=== PATIENT | female | born 1955 | race Hispanic/Latino ===

== ENCOUNTER 2016-10-08 04:55 | Emergency (ER) | payer OTHER ==
[~2016-10-08] VITALS: Ht 147.3 cm; Wt 68.0 kg
[~2016-10-08 04:55] MED LIST: ACYCLOVIR800 MG PO; BACLOFEN10 MG PO; BACTRIM DS TAB1 EACH PO; CEPHALEXIN500 MG PO; CIPROFLOXACIN250 MG PO; CLINDAMYCIN HC300 MG PO; CYCLOBENZAPRINE10 MG PO; CYCLOBENZAPRINE5 MG PO; DICLOFENAC SODI75 MG PO; FLAGYL500 MG PO; FLOVENT HFA12 GM INH; GABAPENTIN300 MG PO; IBUPROFEN200 M1 PO; LISINOPRIL-HCT1 EAC2 PO; LYRICA75 MG PO; MONTELUKAST SOD10 MG PO; NAPROXEN375 M1 PO; NORCO 5-325 TA1 EACH PO; OXYCODONE HCL10 MG PO; PERCOCET 7.5-31 EACH PO; RANITIDINE HCL150 M1 PO; SPIRIVA18 MCG INH
[2016-10-08] MEDS ORDERED: TRAMADOL HCL50 MG PO (05:07)
[2016-10-08] MEDS ORDERED: BACTRIM DS TAB1 EACH PO (05:51)
[2016-10-08] MEDS ORDERED: CEPHALEXIN500 MG PO (05:51)
== END 2016-10-08 06:10 | disposition home or self-care (01) ==
LOC: ED 04:55
DX: L03.115 Cellulitis of right lower limb (principal); F17.200 Nicotine dependence, unspecified, uncomplicated; Z79.899 Other long term (current) drug therapy
CPT/HCPCS: 99283

== ENCOUNTER 2017-02-02 14:58 | Emergency (ER) | payer OTHER ==
[~2017-02-02] VITALS: Ht 147.3 cm; Wt 68.0 kg
[~2017-02-02 14:58] MED LIST changes: +TRAMADOL HCL50 MG PO
[2017-02-02] MEDS ORDERED: ZITHROMAX250 MG PO (17:47)
[2017-02-02] MEDS ORDERED: VENTOLIN HFA18 GM INH (17:47)
== END 2017-02-02 18:20 | disposition home or self-care (01) ==
LOC: ED 14:58
DX: F19.10 Other psychoactive substance abuse, uncomplicated (principal); J18.9 Pneumonia, unspecified organism; I10 Essential (primary) hypertension; F17.200 Nicotine dependence, unspecified, uncomplicated; Z86.19 Personal history of other infectious and parasitic diseases; Z79.899 Other long term (current) drug therapy
CPT/HCPCS: 70450; 71010; 72125; 80053; 85025; 85651; 86140; 94640; 96372; 99284; J0696

== ENCOUNTER → 2017-02-03 | Emergency (ER) | payer OTHER ==
[~2017-02-03] VITALS: Ht 147.3 cm; Wt 68.0 kg
[~2017-02-03] MED LIST changes: +VENTOLIN HFA18 GM INH; +ZITHROMAX250 MG PO
== END ==
LOC: ED 13:38
DX: J18.9 Pneumonia, unspecified organism (principal); G82.50 Quadriplegia, unspecified; F15.90 Other stimulant use, unspecified, uncomplicated; F11.90 Opioid use, unspecified, uncomplicated; F17.200 Nicotine dependence, unspecified, uncomplicated; Z86.19 Personal history of other infectious and parasitic diseases; Z90.710 Acquired absence of both cervix and uterus; Z79.899 Other long term (current) drug therapy
CPT/HCPCS: 36600; 51702; 71010; 72128; 80053; 82803; 83880; 84484; 85025; 94640; 96365; 99285; J3370

== ENCOUNTER 2017-06-02 12:16 | Emergency (ER) | payer OTHER, MEDICAID ==
[~2017-06-02] VITALS: Ht 147.3 cm; Wt 68.0 kg
--- OUTSIDE RECORDS SUMMARY | ~2017-06-02 | XMS | Clinical Summary ---
Demographics + + + | Address | [address] | | | [place] [address] | + + + | Home Phone | | + + + | Preferred Language | Unknown | + + + | Marital Status | Single | + + + | Mosque Affiliation | Unknown | + + + [...] Team Providers + +------+ + | Care Professor Of Kinesiology Name | Role | Phone | + +------+ + | Abraham Barton MD | PP | Unavailable | + +------+ + Source Comments [place]CRUZ is fully live on both [facility] and [facility] InPatient.[facility] & [facility] Allergies No Known Allergies Current Medications [...] 01/20/2011 | | | (FLU SHOT) | 7 | | | + + + + + Results Not on filefrom Last 3 Months
--- OUTSIDE RECORDS SUMMARY | ~2017-06-02 | XMS | Clinical Summary ---
Demographics + + + | Address | [address] | | | [place] [address] | + + + | Home Phone | | + + + | Preferred Language | Unknown | + + + | Marital Status | Single | + + + | Latter Day Affiliation | Unknown | + + + [...] Team Providers + +------+ + | Care Black Oxide Coating Equipment Tender Name | Role | Phone | + +------+ + | Abraham Barton MD | PP | Unavailable | + +------+ + Source Comments [place]Z is fully live on both [facility] Ambulatory and [facility] InPatient.[facility] & [facility] Allergies No Known Allergies Current Medications + [...]
[2017-06-02] MEDS ORDERED: OXYCODONE HCL5 MG PO (12:40)
[2017-06-02] MEDS ORDERED: IPRAT-ALBUT 0.5-3 ML INH ×2 (12:46→14:18)
[2017-06-02] MEDS ORDERED: NITROFURANTOIN100 MG PO (12:47)
== END 2017-06-02 14:43 | disposition home or self-care (01) ==
LOC: ED 12:16
DX: J44.9 Chronic obstructive pulmonary disease, unspecified (principal); R60.9 Edema, unspecified; I10 Essential (primary) hypertension; F17.200 Nicotine dependence, unspecified, uncomplicated; Z79.899 Other long term (current) drug therapy
CPT/HCPCS: 36415; 80053; 85025; 99283

== ENCOUNTER 2017-07-13 02:27 | Observation (INO) | payer OTHER ==
[~2017-07-13] VITALS: Ht 147.3 cm; Wt 64.5 kg
--- OUTSIDE RECORDS SUMMARY | ~2017-07-13 | XMS | Clinical Summary ---
Demographics + + + | Address | [address] | | | [place] [address] | + + + | Home Phone | | + + + | Preferred Language | Unknown | + + + | Marital Status | Single | + + + | Yazidism Affiliation | Unknown | + + + [...] Team Providers + +------+ + | Care Mobile Home Park Manager Name | Role | Phone | + +------+ + | Abraham Barton MD | PP | Unavailable | + +------+ + Source Comments [place]Z is fully live on both [facility] Amb[facility] and [facility] InPatient.[facility] & [facility] Allergies No Known Allergies Current Medications + [...]
--- OUTSIDE RECORDS SUMMARY | ~2017-07-13 | XMS | Clinical Summary ---
Demographics + + + | Address | [address] | | | [place] [address] | + + + | Home Phone | | + + + | Preferred Language | Unknown | + + + | Marital Status | Single | + + + | Congregational Affiliation | Unknown | + + + [...] Team Providers + +------+ + | Care Rejoiner Name | Role | Phone | + +------+ + | Abraham Barton MD | PP | Unavailable | + +------+ + Source Comments [place]Z is fully live on both [facility] Ambulatory and [facility] InPatient.[facility] & [facility] Allergies No Known Allergies Current Medications + [...]
--- OUTSIDE RECORDS SUMMARY | ~2017-07-13 | XMS | Clinical Summary ---
Demographics + + + | Address | [address] | | | [place] [address] | + + + | Home Phone | | + + + | Preferred Language | Unknown | + + + | Marital Status | Single | + + + | Christianity Affiliation | Unknown | + + + [...] Team Providers + +------+ + | Care Crimper Operator Name | Role | Phone | + +------+ + | Abraham Barton MD | PP | Unavailable | + +------+ + Source Comments [place]UZ is fully live on both [facility] and [facility] InPatient.[facility] Allergies No Known Allergies Current Medications + [...]
--- OUTSIDE RECORDS SUMMARY | ~2017-07-13 | XMS | Clinical Summary ---
Demographics + + + | Address | [address] [place] [address] ROAD | | | [place] [address] | + + + | Home Phone | | + + + | Preferred Language | Unknown | + + + | Marital Status | | + + + | Yazdanism Affiliation | Unknown | + + + | Race | Unknown | + + + | Ethnic Group | Unknown | + + + Author + + + | Author | [facility] | | | and [place] | + + + | Organization | [facility] | | | [...] Team Providers + +------+ + | Care Prison Keeper Name | Role | Phone | + +------+ + | Corie Bain CONTROLS PROJECT ENGINEER | PP | | + +------+ + [...] Vaccine: Influenza | | | | | (#1) | 7 | | | + + [...] | MODA | xxxxxxxx | Medica | +[id number] | | | MEDICAID HMO | HEALTH [...] | Self | [birth year] | Home: | [id number] [place] [address] ROAD | | JUAN DANIEL | matthew/Fan | | 1954 | [phone] | [place] [address] | | | [place] | | | [phone] | | + +--------+ +--------+ + +
--- OUTSIDE RECORDS SUMMARY | ~2017-07-13 | XMS | Clinical Summary ---
Demographics + + + | Address | [address] [place] [address] ROAD | | | [place] [address] | + + + | Home Phone | | + + + | Preferred Language | Unknown | + + + | Marital Status | | + + + | Worship Affiliation | Unknown | + + + | Race | Unknown | + + + | Ethnic Group | Unknown | + + + Author + + + | Author | [facility] | | | and [place] | + + + | Organization | [facility] | | | [...] Team Providers + +------+ + | Care Blow Pit Helper Name | Role | Phone | + +------+ + | Corie Bain MASK DESIGNER | PP | | + +------+ + [...] | MODA | xxxxxxxx | Medica | [id number] | | | MEDICAID HMO | HEALTH [...] | Self | [birth year] | Home: | [id number] [place] [address] ROAD | | JUAN DANIEL | matthew/Fan | | 1954 | [phone] | [place] [address] | | | [place] | | | [phone] | | + +--------+ +--------+ + +
--- OUTSIDE RECORDS SUMMARY | ~2017-07-13 | XMS | Clinical Summary ---
Demographics + + + | Address | [address] [place] [address] ROAD | | | [place] [address] | + + + | Home Phone | | + + + | Preferred Language | Unknown | + + + | Marital Status | | + + + | Nondenominational Affiliation | Unknown | + + + | Race | Unknown | + + + | Ethnic Group | Unknown | + + + Author + + + | Author | [facility] | | | and [place] | + + + | Organization | [facility] | | [...] Team Providers + +------+ + | Care Envelope Sealing Machine Operator Name | Role | Phone | + +------+ + | Corie Bain LOG HOOKER | PP | | + +------+ + [...] | MODA | xxxxxxxx | Medica | +[id number] | | | MEDICAID HMO | HEALTH [...] | Self | [birth year] | Home: | [id number] [place] [address] ROAD | | JUAN DANIEL | matthew/Fan | | 1954 | [phone] | [place] [address] | | | [place] | | | [address] | | + +--------+ +--------+ + +
[~2017-07-13 02:27] MED LIST changes: +IPRAT-ALBUT 0.5-3 ML INH; +NITROFURANTOIN100 MG PO; +OXYCODONE HCL5 MG PO
[2017-07-13] MEDS ORDERED: COMBIVENT RESPIM4 GM INH (11:40)
[2017-07-13] MEDS ORDERED: PREDNISONE20 MG PO (11:41)
[2017-07-13] MEDS ORDERED: DOXYCYCLINE HY100 MG PO (11:41)
[2017-07-13] MEDS ORDERED: ALBUTEROL2.5 MG/3 M INH (11:42)
[2017-07-13] MEDS ORDERED: NICOTINE LOZENGE4 MG BUCCAL (12:08)
--- NOTE | 2017-07-13 16:50 | EKG ---
[facility] [address] [place] [address] Signed Normal sinus rhythm Normal ECG When compared with ECG of 31-JAN-2017 14:18, No significant change was found Confirmed by SHAQUILLE GONZALEZ MD ([id number]) on 07/13/2017 4:49:50 PM Electronically Signed By: SHAQUILLE GONZALEZ MD 07/13/17 1650 PATIENT NAME: ANGELADESHAWN Electrocardiogram DATE OF : 53 PHYSICIAN: SHAQUILLE GONZALEZ MD REPORT #: [id number] REPORT IS CONFIDENTIAL AND NOT TO BE RELEASED WITHOUT AUTHORIZATION
== END 2017-07-13 16:01 | disposition home or self-care (01) ==
LOC: ED 02:27 → MS 02:29
PROVIDERS: ADMIT Internal Medicine
DX: J44.1 Chronic obstructive pulmonary disease with (acute) exacerbation (principal); J96.01 Acute respiratory failure with hypoxia; J96.02 Acute respiratory failure with hypercapnia; F17.200 Nicotine dependence, unspecified, uncomplicated; B19.20 Unspecified viral hepatitis C without hepatic coma; I10 Essential (primary) hypertension; E03.9 Hypothyroidism, unspecified; G89.29 Other chronic pain; M54.9 Dorsalgia, unspecified; F11.10 Opioid abuse, uncomplicated; J98.11 Atelectasis; Z87.11 Personal history of peptic ulcer disease; Z87.2 Personal history of diseases of the skin and subcutaneous tissue
CPT/HCPCS: 36415; 36600; 71045; 80053; 82803; 83735; 83880; 84484; 85025; 93005; 93010; 94640; 94644; 94761; 96374; 96375; 99285; 99406; G0378; J0696; J2405; J2930; J7030; J7512

== ENCOUNTER 2017-07-22 14:55 | Observation (INO) | payer OTHER ==
[~2017-07-22] VITALS: Ht 147.3 cm; Wt 64.0 kg
--- OUTSIDE RECORDS SUMMARY | ~2017-07-22 | XMS | Clinical Summary ---
Demographics + + + | Address | [address] | | | [place] [address] | + + + | Home Phone | | + + + | Preferred Language | Unknown | + + + | Marital Status | Single | + + + | Temple Affiliation | Unknown | + + + [...] Team Providers + +------+ + | Care Insurance Claims Clerk Name | Role | Phone | + +------+ + | Abraham Barton MD | PP | Unavailable | + +------+ + Source Comments [place]Z is fully live on both [facility] Ambulatory and [facility] InPatient.[facility] Allergies No Known Allergies Current Medications + [...]
--- OUTSIDE RECORDS SUMMARY | ~2017-07-22 | XMS | Clinical Summary ---
Demographics + + + | Address | [address] [place] [address] ROAD | | | [place] [address] | + + + | Home Phone | | + + + | Preferred Language | Unknown | + + + | Marital Status | | + + + | Voodoo Affiliation | Unknown | + + + | Race | Unknown | + + + | Ethnic Group | Unknown | + + + Author + + + | Author | [facility] | | | and [place] | + + + | Organization | [facility] | | | [...] Team Providers + +------+ + | Care Bricklayer Apprentice Name | Role | Phone | + +------+ + | Corie Bain ELECTRO OPTICAL ENGINEER | PP | | + +------+ [...] | MODA | xxxxxxxx | Medica | [id number] | | | MEDICAID HMO | HEALTH [...] | Self | [birth year] | Home: | [id number] [place] [address] ROAD | | JUAN DANIEL | matthew/Fan | | 1954 | [phone] | [place] [address] | | | [place] | | | [address] | | + +--------+ +--------+ + +
[~2017-07-22 14:55] MED LIST changes: +ALBUTEROL2.5 MG/3 M INH; +COMBIVENT RESPIM4 GM INH; +DOXYCYCLINE HY100 MG PO; +NICOTINE LOZENGE4 MG BUCCAL; +PREDNISONE20 MG PO
--- OUTSIDE RECORDS SUMMARY | 2017-07-22 17:48 | XMS | Clinical Summary ---
Demographics + + + | Address | [address] [place] [address] ROAD | | | [place] [address] | + + + | Home Phone | | + + + | Preferred Language | Unknown | + + + | Marital Status | | + + + | Buddhism Affiliation | Unknown | + + + | Race | Unknown | + + + | Ethnic Group | Unknown | + + + Author + + + | Author | [facility] | | | and [place] | + + + | Organization | [facility] | | | and [place] | + + + | Address | Unknown | + + + | Phone | Unavailable | + + + Support + + +---------+ + | Name | Relationship | Address | Phone | + + +---------+ + | Lewis Miller | ECON | Unknown | | + + +---------+ + Care Team Providers + +------+ + | Care C Winforms Developer Name | Role | Phone | + +------+ + | Corie Bain DRYER OPERATOR | PP | | + +------+ + Allergies No Known Allergies Current Medications + + +---------+---------+------+------+-------+ | Prescription | Sig. | Disp. | Refills | Star | End | Statu | | | | | | t | Date | s | | | | | | Date | | | + + +---------+---------+------+------+-------+ | cyclobenzaprine | Take 10 mg by mouth | | | | | Activ | | (FLEXERIL) 10 mg | nightly. | | | | | e | | tablet | | | | | | | + + +---------+---------+------+------+-------+ | docusate sodium | Take 100 mg by mouth | | | | | Activ | | (COLACE) 100 mg | 2 times daily. | | | | | e | | capsule | | | | | | | + + +---------+---------+------+------+-------+ | ibuprofen | Take 800 mg by mouth | | | | | Activ | | (ADVIL,MOTRIN) 800 | as needed. | | | | | e | | MG tablet | | | | | | | + + +---------+---------+------+------+-------+ | baclofen | Take 10 mg by mouth | | | | | Activ | | (LIORESAL) 10 mg | 3 times daily. | | | | | e | | tablet | | | | | | | + + +---------+---------+------+------+-------+ | fluticasone | Inhale 1 puff into | | | | | Activ | | (FLOVENT HFA) 110 | the lungs 2 times | | | | | e | | mcg/puff inhaler | daily. | | | | | | + + +---------+---------+------+------+-------+ | gabapentin | TAKE ONE CAPSULE BY | 90 | 11 | 10/2 | | Activ | | (NEURONTIN) 300 mg | MOUTH EVERY NIGHT AT | capsule | | 8/20 | | e | | capsule | BEDTIME | | | 15 | | | + + +---------+---------+------+------+-------+ | oxyCODONE 10 MG | Take 5-10 mg by | | | | | Activ | | TABS | mouth every 4 hours | | | | | e | | | as needed. | | | | | | + + +---------+---------+------+------+-------+ | ranitidine | Take 150 mg by mouth | | | | | Activ | | (ZANTAC) 150 mg | 2 times daily. | | | | | e | | tablet | | | | | | | + + +---------+---------+------+------+-------+ Active Problems + + + | Problem | Noted Date | + + + | Facet arthritis of lumbar region (HCC) | 07/09/2014 | + + + | Chronic low back and posterior pelvis pain | 06/12/2013 | + + + | DDD (degenerative disc disease), lumbar | 06/12/2013 | + + + | Lumbar radiculopathy | 06/12/2013 | + + + | Coccydynia | 06/12/2013 | + + + | Right leg paresthesias | 06/12/2013 | + + + | Illicit drug use - meth and heroine | 06/12/2013 | + + + Social History + +-------+ +--------+------+ | Tobacco Use | Types | Packs/Day | Years | Date | | | | | Used | | + +-------+ +--------+------+ | Current Every Day | | | | | | Smoker | | | | | + +-------+ +--------+------+ + + + | Sex Assigned at | Date Recorded | | | | + + + | Not on file | | + + + Last Filed Vital Signs + + + + | Vital Sign | Reading | Time Taken | + + + + | Blood Pressure | 105/70 | 12/16/20157 PDT | + + + + | Pulse | 80 | 12/16/20157 PDT | + + + + | Temperature | - | - | + + + + | Respiratory Rate | - | - | + + + + | Oxygen Saturation | - | - | + + + + | Inhaled Oxygen | - | - | | Concentration | | | + + + + | Weight | 66.5 kg (146 lb 9.6 | 12/16/20151526 PDT | | | oz) | | + + + + | Height | 149.9 cm (4' 11") | 12/16/20151526 PDT | + + + + | Body Mass Index | 29.61 | 12/16/20151526 PDT | + + + + Plan of Treatment + + + + + | Health Maintenance | Due Date | Last Done | Comments | + + + + + | Hepatitis C | | | | | Screening | 4 | | | + + + + + | Vaccine: | | | | | Dtap/Tdap/Td (1 - | 3 | | | | Tdap) | | | | + + + + + | Vaccine: | | | | | Pneumococcal 19-64 | 3 | | | | (PPSV23 only) Medium | | | | | Risk (1 of 1 - | | | | | PPSV23) | | | | + + + + + | CERVICAL CANCER | | | | | SCREENING (PAP EVERY | 5 | | | | 3 YEARS 21-64 ) | | | | + + + + + | BREAST CANCER | | | | | SCREENING (MAMM Q2 | 4 | | | | YEARS 50-74) | | | | + + + + + | COLON CANCER | | | | | SCREENING | 4 | | | | (COLONOSCOPY EVERY | | | | | 10 YEARS 50-75) | | | | + + + + + | Vaccine: Zoster (#1) | | | | | | 4 | | | + + + + + | Vaccine: Influenza | | | | | (Season Ended) | 8 | | | + + + + + Results Not on filefrom Last 3 Months Insurance + +--------+ +--------+ +---------+ | Payer | Benefi | Subscriber | Type | Phone | Address | | | t Plan | ID | | | | | | / | | | | | | | Group | | | | | + +--------+ +--------+ +---------+ | [employer] | MODA | xxxxxxxx | Medica | +[id number] | | | MEDICAID HMO | HEALTH | | id | [id number] | | | | MDCD | | | | | | | HMO [place] | | | | | + +--------+ +--------+ +---------+ + +--------+ +--------+ + + | Guarantor Name | Accoun | Relation to | Date | Phone | Billing Address | | | t Type | Patient | of | | | | | | | | | | + +--------+ +--------+ + + | SHARI MILLER | Person | Self [birth year] | Home: | [id number] [place] [address] [address] | | JUAN DANIEL | matthew/Fan | | 1954 | [phone] | [place] [address] | | | [place] | | | [address] | | + +--------+ +--------+ + +
--- OUTSIDE RECORDS SUMMARY | 2017-07-22 17:48 | XMS | Clinical Summary ---
Demographics + + + | Address | [address] | | | [place] [address] | + + + | Home Phone | | + + + | Preferred Language | Unknown | + + + | Marital Status | Single | + + + | Jain Affiliation | Unknown | + + + | Race | White | + + + | Ethnic Group | Not or | + + + Author + + + | Author | [facility] | + + + | Organization | [facility] | + + + | Address | Unknown | + + + | Phone | Unavailable | + + + Support + + +---------+ + | Name | Relationship | Address | Phone | + + +---------+ + | TIM GUNTER | ECON | Unknown | | + + +---------+ + Care Team Providers + +------+ + | Care Garden Equipment Mechanic Name | Role | Phone | + +------+ + | Abraham Barton MD | PP | Unavailable | + +------+ + Source Comments MARICRUZ is fully live on both [facility] Ambulatory and [facility] InPatient.[facility] Allergies No Known Allergies Current Medications + + +---------+---------+------+------+-------+ | Prescription | Sig. | Disp. | Refills | Star | End | Statu | | | | | | t | Date | s | | | | | | Date | | | + + +---------+---------+------+------+-------+ | baclofen 10 mg | Take 10 mg by mouth | | | | | Activ | | oral tablet | as needed. | | | | | e | + + +---------+---------+------+------+-------+ | fluticasone 110 | Inhale. | | | | | Activ | | mcg/actuation | | | | | | e | | inhalation HFA | | | | | | | | aerosol inhaler | | | | | | | + + +---------+---------+------+------+-------+ | gabapentin 300 mg | Take 300 mg by mouth | | | 04/10 | | Activ | | oral capsule | once daily at | | | 3/20 | | e | | | bedtime. | | | 15 | | | + + +---------+---------+------+------+-------+ | | Take by mouth. | | | | | Activ | | HYA/PVP/BEN/MARY/PG/M | | | | | | e | | AL/HYD/EMPERATRIZ (RINCINOL | | | | | | | | P.R.N. MM) | | | | | | | + + +---------+---------+------+------+-------+ | VENTOLIN HFA 90 | | | 1 | 09/0 | | Activ | | mcg/actuation | | | | 4/20 | | e | | inhalation HFA | | | | 15 | | | | aerosol inhaler | | | | | | | + + +---------+---------+------+------+-------+ | oxyCODONE, | 10 mg four times | | 0 | 10/0 | | Activ | | immediate release, | daily as needed. | | | 2/20 | | e | | 10 mg oral tablet | | | | 15 | | | + + +---------+---------+------+------+-------+ | Ranitidine HCl 150 | 150 mg two times | | 0 | 09/2 | | Activ | | mg oral capsule | daily. | | | 20 | | e | | | | | | 15 | | | + + +---------+---------+------+------+-------+ | polyethylene | Take 17 g by mouth | 119 g | 2 | 10/2 | | Activ | | glycol (MIRALAX) 17 | once daily. Dissolve | | | 3/20 | | e | | gram/dose oral | one scoop in a cup | | | 15 | | | | powder | of water and drink | | | | | | | | daily. | | | | | | + + +---------+---------+------+------+-------+ | docusate sodium | Take 1 capsule by | 60 | 2 | 10/2 | | Activ | | 100 mg oral capsule | mouth two times | capsule | | 3/20 | | e | | | daily. | | | 15 | | | + + +---------+---------+------+------+-------+ | Psyllium | Take 3.4 g by mouth | 30 | 2 | 10/2 | | Activ | | Husk-Aspartame | once daily. | packet | | 320 | | e | | (METAMUCIL FIBER | | | | 15 | | | | SINGLES) 3.4 gram | | | | | | | | oral powder in | | | | | | | | packet | | | | | | | + + +---------+---------+------+------+-------+ Active Problems + + + | Problem | Noted Date | + + + | Constipation | 09/28/2012 | + + + | Urinary urgency | 09/28/2012 | + + + | Arthralgia | 01/20/2011 | + + + | Hepatitis C | 01/20/2011 | + + + Immunizations + + + + | Name | Dates Previously Given | Next Due | + + + + | Influenza, split | 01/20/2011 | | + + + + Family History + + +------+ + | Medical History | Relation | Name | Comments | + + +------+ + | Cancer | Mother | | lung | + + +------+ + + +------+--------+ + | Relation | Name | Status | Comments | + +------+--------+ + | Mother | | | | + +------+--------+ + Social History + +-------+ +--------+------+ | Tobacco Use | Types | Packs/Day | Years | Date | | | | | Used | | + +-------+ +--------+------+ | Current Every Day | | | | | | Smoker | | | | | + +-------+ +--------+------+ + + +---------+ + | Alcohol Use | Drinks/We | oz/Week | Comments | | | ek | | | + + +---------+ + | No | | | | + + +---------+ + + + + | Sex Assigned at | Date Recorded | | | | + + + | Not on file | | + + + Last Filed Vital Signs + + + + | Vital Sign | Reading | Time Taken | + + + + | Blood Pressure | 132/78 | 01/30/2015 1:23 PM PDT | + + + + | Pulse | 77 | 01/30/2015 1:23 PM PDT | + + + + | Temperature | 36.1 C (96.9 F) | 01/30/2015 1:23 PM PDT | + + + + | Respiratory Rate | - | - | + + + + | Oxygen Saturation | 100% | 01/30/2015 1:23 PM PDT | + + + + | Inhaled Oxygen | - | - | | Concentration | | | + + + + | Weight | 70 kg (154 lb 4.8 | 01/30/2015 1:23 PM PDT | | | oz) | | + + + + | Height | 148.6 cm (4' 10.5") | 01/30/2015 1:23 PM PDT | + + + + | Body Mass Index | 31.7 | 01/30/2015 1:23 PM PDT | + + + + Plan of Treatment + + + + + | Health Maintenance | Due Date | Last Done | Comments | + + + + + | MAMMOGRAM | | | | | | 4 | | | + + + + + | INFLUENZA VACCINE | | 01/20/2011, 01/20/2011 | | | (FLU SHOT) | 8 | | | + + + + + Results Not on filefrom Last 3 Months
--- OUTSIDE RECORDS SUMMARY | 2017-07-22 17:48 | XMS | Clinical Summary ---
Demographics + + + | Address | [id number] [place] [address] ROAD | | | [place] [address] | + + + | Home Phone | | + + + | Preferred Language | Unknown | + + + | Marital Status | | + + + | Sikhism Affiliation | Unknown | + + + | Race | Unknown | + + + | Ethnic Group | Unknown | + + + Author + + + | Author | [facility] | | | and [place] | + + + | Organization | [facility] | | | and [...] Team Providers + +------+ + | Care Yardage Caller Name | Role | Phone | + +------+ + | Corie Bain CERTIFIED NURSES AIDE | PP | | + +------+ + [...] | MODA | xxxxxxxx | Medica | +[id number] | | | MEDICAID HMO | HEALTH [...] | Self | [birth year] | Home: | [id number] [place] [address] ROAD | | JUAN DANIEL | matthew/Fan | | 1954 | [phone] | [place] [address] | | | [place] | | | [address] | | + +--------+ +--------+ + +
--- OUTSIDE RECORDS SUMMARY | 2017-07-22 17:48 | XMS | Clinical Summary ---
Demographics + + + | Address | [address] | | | [place] [address] | + + + | Home Phone | | + + + | Preferred Language | Unknown | + + + | Marital Status | Single | + + + | Episcopalian Affiliation | Unknown | + + + [...] Team Providers + +------+ + | Care Consulting Group Analyst Name | Role | Phone | + +------+ + | Abraham Barton MD | PP | Unavailable | + +------+ + Source Comments [place]Z is fully live on both [facility] Ambulatory and [facility] InPatient.[facility] Allergies No Known Allergies Current Medications + [...]
--- NOTE | 2017-07-22 18:58 | NUR ---
PT ARRIVED VIA STREACHER AND THREE PERSON TRANSFER TO BED, PT ASKED 'WHERE AM I" EXPLAINED SHE IS AT THE HOSPITAL AND THEN SHE WENT BACK TO SLEEP. BIPAP INPLACE 35%, RATE OF 12
--- NOTE | 2017-07-22 19:35 | NUR ---
PT REMAINS ON BIPAP, REPORT GIVEN ALL QUESTIONS ANSWERED.
--- NOTE | 2017-07-22 20:30 | NUR ---
PT MUMBLED A FEW WORDS TO THE RT BUT NONVERBAL FOR ME. INC OF URINE AND DID HELP WITH ROLLING BUT DOES NOT REALLY FOLLOW COMMANDS AND THEN LIMBS BECAME LIMP. REMAINS ON BIPAP.
--- NOTE | 2017-07-22 22:00 | NUR ---
CONT TO SLEEP WITH BIPAP IN PLACE.
--- NOTE | 2017-07-22 23:30 | EKG ---
[facility] [address] [place] [address] Signed Sinus rhythm with occasional premature ventricular complexes Possible Left atrial enlargement Borderline ECG When compared with ECG of 13-JUL-2017 02:53, premature ventricular complexes are now present Confirmed by SHAQUILLE GONZALEZ MD ([id number]) on 07/22/2017 11:30:09 PM Electronically Signed By: SHAQUILLE GONZALEZ MD 07/22/17 2330 PATIENT NAME: ANGELADESHAWN Electrocardiogram DATE OF : 53 PHYSICIAN: SHAQUILLE GONZALEZ MD REPORT #: [id number] REPORT IS CONFIDENTIAL AND NOT TO BE RELEASED WITHOUT AUTHORIZATION
--- NOTE | 2017-07-23 00:01 | NUR ---
IN TO ASSESS PT. FOUND TO BE INC URINE. PT DID ASSIST WITH TURNING AND DID OPEN EYES. BIPAP OFF BRIEFLY, HAD PT COUGH. COUGH EFFORT IS VERY WEAK. BACK ON BIPAP. BACK TO SLEEP. HAVE HELD METHADONE PT HAS BEEN DROWSY.
--- NOTE | 2017-07-23 00:03 | NUR ---
ADDENDUM. HAS BLISTERED AREA ABOUT 1/2 IN WIDE AND 1 INCH LONG ON R UPPER HIP AREA. ALLEVYN APPLIED.
--- NOTE | 2017-07-23 00:09 | NUR ---
IV SITE IS TOP OF R BREAST
--- NOTE | 2017-07-23 01:40 | NUR ---
AWAKE, OFF BIPAP TO ALLOW PT TO COUGH HAS COPIOUS AMT SECRETIONS THAT ARE TENACIOUS, MOSTLY CLEAR, SOME YELLOW TINGED. WRITHING AND C/O BACK PAIN AND NEEDING TO VOID. WAS INC AND PLACED ON BEDPAN, UNABLE TO VOID ON BEDPAN BUT WAS THEN INC AFTER WAS CHANGED AND REPOSITIONED. WAS ABLE TO GIVE METHADONE PO. C/O BEING SOB WHILE ON OXYMASK, BACK ON BIPAP AND FELL ASLEEP.
--- NOTE | 2017-07-23 02:33 | NUR ---
SLEEPING WITH BIPAP IN PLACE.
--- NOTE | 2017-07-23 04:05 | NUR ---
HAS BEEN RESTING WELL. INC URINE, ATTENDS CHANGED. DID HELP WITH TURNING BUT OTHERWISE DIDN'T INTERACT WITH NURSE.
--- NOTE | 2017-07-23 06:18 | NUR ---
CONT TO SLEEP WITH BIPAP IN PLACE. INC URINE, ATTENDS CHANGED. NO NEURO CHANGES.
--- NOTE | 2017-07-23 07:30 | NUR ---
MORE AWAKE, FLAILING ARMS C/O BACK PAIN. TOOK 02 OFF AND THEN C/O BEING UNABLE TO BREATH. REPOSITIONED AND 02 REPLACED.
--- NOTE | 2017-07-23 08:05 | NUR ---
PT AWAKE, ANSWERES QUESTIONS, HAS SOME SWEATING NOTED ON FORHEAD, PT STATES "I AM HURTING" WHEN ASKED IF SHE FEELS THAT SHE IS WITHDAWELING FROM [facility] PT STATES "YES" WHEN ASKED HOW MUCH SHE USES "1 GRAM A DAY". DR GONZALEZ IN THE DEPARTMENT AND NOTIFIED. NEW ORDERS RECEIVED.
--- NOTE | 2017-07-23 08:59 | NUR ---
DR GONZALEZ NOTIFIED OF INCREASED BP NEW ORDERS RECEIVED. EXPLAINED TO PT WHAT THE PLAN OF CARE IS AND SHE REFUSING TO EAT, USE BEDSIDE COMMODE, AND THE USE OF THE CALL LIGHT. PT WILL YELL OUT WHAT SHE WANTS. PT YELLED "I HAVE TO PEE" WHEN STAFF WENT INTO THE ROOM AND EXPLAINED LETS GET UP TO THE BEDSIDE COMMODE PT STATES "I DONT WANT TO! "BITCH" I PEE'ED" ATTENDS CHANGED AT THIS TIME, SIDE RAILS X 4 AND BED ALARM ON AND BED IN LOW POSITION.
--- NOTE | 2017-07-23 09:15 | NUR ---
PT WANTS TO GO HOME. PHONE CALL MADED TO HER SON AND HE IS GOING TO FIGURE HOW TO GET A CAR AND COME TO GET HIS MOTHER. DR GONZALEZ IS AWARE.
[2017-07-23] MEDS ORDERED: PREDNISONE20 MG PO (09:42)
--- NOTE | 2017-07-23 09:42 | NUR ---
DR GONZALEZ INTO SEE PT THIS AM. PT WILL BE DISCHARGE TO HOME WHEN HER RIDE IS HERE
--- NOTE | 2017-07-23 09:48 | NUR ---
PT YELLED "I HAVE TO PEE" UP TO BEDSIDE COMMODE, VOIDED AND BACK TO BED. ATTENDS WAS WET ALSO.
--- NOTE | 2017-07-23 10:35 | NUR ---
PT UP TO THE BEDSIDE COMMODE, VOIDED AND THEN BACK TO BED WITH OTHER STAFF HELP.
--- NOTE | 2017-07-23 10:36 | NUR ---
PT DISCHARGE TO HOME, PT DRESSED AND PLACED IN AND HAS TAXIE RIDE TO HER HOME ON [address] IN [place]. DISCHARGE INSTRUCTIONS GIVEN PT SIGNED AND LEFT, PT IS UNRESPITIVE TO DICHARGE DIRECTIONS AND TREATMENT OPITIONS. PT JUST WANTS MORE HERION.
== END 2017-07-23 10:30 | disposition home or self-care (01) ==
LOC: ED 14:55 → CCU 14:57
PROVIDERS: ADMIT Internal Medicine
PROC: 5A09357 Assistance with Respiratory Ventilation, Less than 24 Consecutive Hours, Continuous Positive Airway Pressure (ICD-10-PCS; principal; 2017-07-22)
DX: T40.1X1A Poisoning by heroin, accidental (unintentional), initial encounter (principal); J96.22 Acute and chronic respiratory failure with hypercapnia; J96.21 Acute and chronic respiratory failure with hypoxia; I10 Essential (primary) hypertension; F11.23 Opioid dependence with withdrawal; J44.9 Chronic obstructive pulmonary disease, unspecified; B19.20 Unspecified viral hepatitis C without hepatic coma; F17.200 Nicotine dependence, unspecified, uncomplicated; Z79.899 Other long term (current) drug therapy; Z87.11 Personal history of peptic ulcer disease; Z99.81 Dependence on supplemental oxygen
CPT/HCPCS: 36415; 36600; 71045; 80053; 82803; 83605; 83880; 84484; 85025; 93005; 93010; 94640; 94660; 96361; 96372; 96374; 96375; 96376; 99285; G0378; J0696; J1100; J1650; J2060; J2930; J7120; Q0177

== ENCOUNTER 2017-07-25 08:12 | Inpatient (IN) | payer OTHER ==
[~2017-07-25] VITALS: Ht 147.3 cm; Wt 61.8 kg
--- OUTSIDE RECORDS SUMMARY | ~2017-07-25 | XMS | Clinical Summary ---
Demographics + + + | Address | [id number] [place] [address] ROAD | | | [place] [address] | + + + | Home Phone | | + + + | Preferred Language | Unknown | + + + | Marital Status | | + + + | Hindu Affiliation | Unknown | + + + | Race | Unknown | + + + | Ethnic Group | Unknown | + + + Author + + + | Author | [facility] | | | and [place] | + + + | Organization | [facility] | | | and [...] Team Providers + +------+ + | Care Security Team Lead Name | Role | Phone | + +------+ + | Corie Bain [place] | PP | | + +------+ + [...] | MODA | xxxxxxxx | Medica | [phone] | | | MEDICAID HMO | HEALTH [...] | Self | [birth year] Home: | [id number] [place] [address] ROAD | | JUAN DANIEL | matthew/Fan | | 1954 | [phone] | [place] [address] | | | [place] | | | [phone] | | + +--------+ +--------+ + +
--- OUTSIDE RECORDS SUMMARY | ~2017-07-25 | XMS | Clinical Summary ---
Demographics + + + | Address | [address] | | | [place] [address] | + + + | Home Phone | | + + + | Preferred Language | Unknown | + + + | Marital Status | Single | + + + | Jewish Affiliation | Unknown | + + + [...] Team Providers + +------+ + | Care Formula Weigher Name | Role | Phone | + +------+ + | Abraham Barton MD | PP | Unavailable | + +------+ + Source Comments MARICRUZ is fully live on both [facility] and [facility] Allergies No Known Allergies Current Medications + [...]
--- OUTSIDE RECORDS SUMMARY | ~2017-07-25 | XMS | Clinical Summary ---
Demographics + + + | Address | [address] | | | [place] [address] | + + + | Home Phone | | + + + | Preferred Language | Unknown | + + + | Marital Status | Single | + + + | Druze Affiliation | Unknown | + + + [...] Team Providers + +------+ + | Care Seafood Farmer Name | Role | Phone | + +------+ + | Abraham Barton MD | PP | Unavailable | + +------+ + Source Comments MAR[facility]Z is fully live on both [facility] and [facility] In[facility] Allergies No Known Allergies Current Medications + [...]
--- OUTSIDE RECORDS SUMMARY | ~2017-07-25 | XMS | Clinical Summary ---
Demographics + + + | Address | [address] | | | [place] [address] | + + + | Home Phone | | + + + | Preferred Language | Unknown | + + + | Marital Status | Single | + + + | Lutheran Affiliation | Unknown | + + + [...] Team Providers + +------+ + | Care Shading Painter Name | Role | Phone | + +------+ + | Abraham Barton MD | PP | Unavailable | + +------+ + Source Comments MARICRUZ is fully live on both [facility] and [facility] Allergies No Known Allergies Current Medications + [...]
--- OUTSIDE RECORDS SUMMARY | ~2017-07-25 | XMS | Clinical Summary ---
Demographics + + + | Address | [address] [place] [address] ROAD | | | [place] [address] | + + + | Home Phone | | + + + | Preferred Language | Unknown | + + + | Marital Status | | + + + | Episcopalian Affiliation | Unknown | + + + | Race | Unknown | + + + | Ethnic Group | Unknown | + + + Author + + + | Author | [facility] | | | and [place] | + + + | Organization | [facility] | | | [...] Team Providers + +------+ + | Care Product Picker Name | Role | Phone | + +------+ + | Corie Bain CASUALTY INSURANCE CLAIM ADJUSTER | PP | | + +------+ + [...] | MODA | xxxxxxxx | Medica | [phone] | | | MEDICAID HMO | HEALTH [...] | Self | [birth year] | Home: | [address] | | JUAN DANIEL | matthew/Fan | | 1954 | [phone] | [place] [address] | | | [place] | | | [phone] | | + +--------+ +--------+ + +
--- OUTSIDE RECORDS SUMMARY | ~2017-07-25 | XMS | Clinical Summary ---
Demographics + + + | Address | [address] [place] [address] ROAD | | | [place] [address] | + + + | Home Phone | | + + + | Preferred Language | Unknown | + + + | Marital Status | | + + + | Congregation Affiliation | Unknown | + + + | Race | Unknown | + + + | Ethnic Group | Unknown | + + + Author + + + | Author | [facility] | | | and [place] | + + + | Organization | [facility] | | | [...] Team Providers + +------+ + | Care Plug Stitcher Name | Role | Phone | + +------+ + | Corie Bain DIAL LATHE OPERATOR | PP | | + +------+ [...] | MODA | xxxxxxxx | Medica | [id number] | | | MEDICAID HMO | HEALTH [...] | Self | [birth year] | Home: | [id number] [place] [address] ROAD | | JUAN DANIEL | matthew/Fan | | 1954 | [phone] | [place] [address] | | | [place] | | | [phone] | | + +--------+ +--------+ + +
--- NOTE | 2017-07-25 13:39 | NUR ---
PT ARRIVED FROM ER TO ROOM 128 VIA STRETCHER WITH BIPAP IN PLACE. TRANSFERRED TO BED WITH 4 PERSON ASSIST RESTING WITH HOB ELEVATED. VITAL SIGNS TAKEN, BP 115/74 HR 73.
--- NOTE | 2017-07-25 14:08 | NUR ---
PT STATES "I HAVE TO PEE". PT INCONT OF SMALL AMT OF URINE IN ATTENDS, BED EDGE IN PLACE BUT PT UNABLE TO VOID ANY MORE, CLEAN ATTENDS IN PLACE. Jacob FRANKLIN RN HERE TO PLACE LARGE IV.
--- NOTE | 2017-07-25 14:35 | NUR ---
PICC CONSULT. ORDERS RECIEVED TO EVALUATE DESHAWN FOR POSSIBLE PICC INSERTION. DR GONZALEZ STOPPED ME IN THE [place] AND REQUESTED JUST A MIDLINE. AFTER EVALUATING THE PT WITH U/S IT WAS NOTED THAT SHE HAD NO INSERTION SITE BELOW THE MID POINT OF HER UPPER ARM. THIS WOULD RESULT IN TRIMMING THE MIDLINE VERY SHORT. AN 18 G 2.25 IN CATHETER IV WOULD BE FUNCTIONALLY LONG THE TRIMMED MIDLINE SO IT WAS INSERTED INSTEAD UNDER U/S GUIDANCE. TWO ATTEMPTS WERE MADE AT THIS.
--- NOTE | 2017-07-25 15:48 | NUR ---
PT WILL OPEN HER EYES TO VOICE. AGREED TO HAVE WHITE CATH PLACED. WHITE PLACED WITH 335 MLS OF DARK YELLOW URINE EMPTIED. PT MARGARETTE WELL. AGB COMPLETED BY RT AND UPPER DENTURES REMOVED TO SOAK IN DENTURE CLEANSER. DR. GONZALEZ HERE TO CHECK ON PT.
--- NOTE | 2017-07-25 16:44 | NUR ---
DR. GONZALEZ NOTIFIED OF SBP 77 ORDERS RECEIVED TO ADJUST BIPAP TO KEEP SBP >90 OR MAP >65. NOW BP 93/57 MAP 65.
--- NOTE | 2017-07-25 17:30 | NUR ---
PATIENT MOVING IN BED AND ACTING A LITTLE BIT ANXIOUS. MYSELF AND MARTIN FLEMING HELPED TO REPOSITION PATIENT HIGHER IN BED AND PLACED PILLOW UNDER HER LEGS. REMOVED BIPAP MASK FOR A FEW SECONDS TO HAVE PATIENT TALK, SHE SAID SHE IS HAVING LOWER BACK PAIN AND AFTER SAYING THAT BEGAN SAYING I CAN'T BREATH. MASK REPLACED. O2 SATURATION IS 99%, HR IS 84, RR IS 25, BP IS 148/94 NOW CLOSING HER EYES AND MOSTLY RESTFUL.
--- NOTE | 2017-07-25 18:29 | NUR ---
Bal CALLED TO CHECK BIPAP MACHINE. DR. GONZALEZ HERE AND SETTINGS ON BIPAP CHANGED TO 20/10 WITH RATE CHANGED TO 10 BY Bal. FI02 REMAINS AT 50%.
--- NOTE | 2017-07-25 19:35 | NUR ---
PT SHIFT REPORT RECEIVED FROM DAY SHIFT RN. PT IS CURRENTLY RESTING IN BED WITH BIPAP AT 16/10 WITH 50% FIO2 AND ATE OF 10. PT WILL HAVE REPEAT ABG AT 1999. PT REMAINS LETHARGIC, BUT WILL OPEN EYES TO VOICE. WILL CONTINUE TO CLOSELY MONITOR.
--- NOTE | 2017-07-25 20:00 | NUR ---
PT SHIFT ASSESSMENT COMPLETED. PT IS RESTING IN BED ON BACK. PT OPENED EYES WHEN THIS RN SAID HER NAME. RT IN ROOM DO DO REPEAT ABG. WHEN ASKED IF ITS OKAY TO DO ABG PT NODED HEAD YES. PT ASSESSMENT COMPLETED. PT BREATH OSUNDS COARSE REMAINS BIPAP AT 16/10 WITH 50% FIO2 AND RATE OF 10. PT IS TOELRATING WELL. HYPOACTIVE BOWEL TONES. SKIN NOTED TO HAVE GENERALIZED BRUISES AND SCABS THOUGHOUT. PT GRANITE CHIP TERRAZZO FINISHER ARE WEAK. WHITE DRAINING YELLOW UINE. WILL CONTINUE TO CLOSELY MONITOR.
--- NOTE | 2017-07-25 20:40 | NUR ---
PT REPOSITIONED WITH PILLOW SUPPORT AND APPLIED HEEL PROTECTORS. PT TOLERATED WELL. WILL CONTINUE TO CLOSELY MONITOR.
--- NOTE | 2017-07-25 21:15 | NUR ---
PT WOKE ASKED WHAT WAS GOING ON. EXPLAINED SITUATION TO PATIENT AND PT IS OKAY WITH PLAN OF CARE AT THIS TIME. PT MOUTH WETTED WITH SPONGES. PT PLACED BACK ON BIPAP WITH NO DIFFICULTIES. WILL CONTINUE TO CLOSELY MONITOR AT THIS TIME.
--- NOTE | 2017-07-25 23:00 | NUR ---
REPOSITIONED PT WITH PILLOW SUPPORT. PT TOELRATED WELL. PT OPENED EYES WITH VOICE, BUT DID NOT TRY TO COMMUNICATE. WILL CONTINUE TO CLOSELY MONITOR.
--- NOTE | 2017-07-26 | NUR ---
PT WOKE AND WANTED MOUTH MOISTENED. USED SPONGE TO WET MOUTH. PLACED PT BACK ON BIPAP. ASSESSMENT COMPLETED AND REMAINS UNCHANGED FROM PREVIOUS ASSESSMENT. WILL CONTINUE TO CLOSELY MONITOR AT THIS TIME.
--- NOTE | 2017-07-26 02:00 | NUR ---
PT REPOSITIONED. PT TOELRATED WELL. PT STATUS REMAINS UNCHANGED. WILL CONTINUE TO CLOSELY MONITOR.
--- NOTE | 2017-07-26 04:15 | NUR ---
PT REPOSITIONED WITH PILLOW SUPPORT. PT REMAINS WITHDRAWN AND LETHARGIC AT THIS TIME. WHEN ASKED PT IF SHE WAS DOING OKAY PT MUMBLED "YES" THROUGH THE BIPAP MASK. PT ASSESSMENT REMAINS UNCHANGED FROM PREVIOUS ASSESSMENTS. WILL CONTINUE TO CLOSELY MONITOR AT THIS TIME.
--- NOTE | 2017-07-26 06:11 | NUR ---
NUCLEAR MEDICINE SPECIALIST IN TO DO MORNING LAB DRAW. PT TOELRATED WELL. PT REQUESTED TO HAVE MOUTH WETTED. WETTED MOUTH WITH SPONGE. BIPAP ON. PT TOLERATED WELL. PT QUICKLY BACK TO SLEEP. WILL CONTINUE TO CLOSELY MONITOR.
--- NOTE | 2017-07-26 08:55 | NUR ---
R.T. IN TO ASSESS PT, FI02 ADJUSTED ON BIPAP TO 40%. SATS 99%. R.N. ASSESSMENT COMPLETED, PT OPENS EYES TO VOICE BUT FALLS ASLEEP QUICKLY. PT DOES NOT ENGAGE IN CONVERSATION.
--- NOTE | 2017-07-26 10:31 | NUR ---
BED BATH GIVEN CATH CARE COMPLETED & LINEN CHANGED. PT MARGARETTE WELL. DR. GONZALEZ IN TO ASSESS PT. PT ASKING FOR MEDICATION FOR BACK PAIN. BIPAP ADJUSTED TO 10/5, RATE 10, FI02 30%. SATS 97% AT THIS TIME, RESP 26. PT MORE ALERT AND WILL HELP WITH TURNING FROM SIDE TO SIDE.
--- NOTE | 2017-07-26 10:40 | NUR ---
ALLEVYN DRESSING REPLACED ON RIGHT LOWER BACK SKIN ABRASION.
--- NOTE | 2017-07-26 10:44 | NUR ---
R.T. HERE AND WILL TRY PT ON OXYMASK. PT ALERT AND ASKING TO TAKE BIPAP OFF.
--- NOTE | 2017-07-26 11:58 | NUR ---
SATS DECREASED TO 80%. DR. GONZALEZ IN ROOM. R.T. NOTIFIED AND HERE. PT MOVED UP IN BED WITH HOB ELEVATED. SENIOR CISCO NETWORK ENGINEER HERE AND CHEST XRAY COMPLETED PER DR. MCKENZIE. SBP 193/85. CLONIDINE 0.1 MG GIVEN PO WITH WATER. PT MARGARETTE WELL. PT RESTING WITH HOB ELEVATED AND SATS 98%. BIPAP SETTINGS 16/10, RATE 16, FI02 50%.
--- NOTE | 2017-07-26 15:23 | NUR ---
PT AWAKE AT 1450 AND WAS ABLE TO TAKE HER IBUPROFEN 400 MG PO WITH SIPS OF WATER. NOW SLEEPING WITH HOB ELEVATED, SATS 99% ON BIPAP 16, 50% FI02.
--- NOTE | 2017-07-26 17:26 | NUR ---
ASSESSMENT COMPLETED. PT OFF BIPAP AND PLACED ON OXYMASK AT 4L. SATS REMAINED 98-99% AND RESP 20. PT ABLE TO TAKE HYDROXYZINE 25 MG PO WITH WATER FOR C/O BACK PAIN "01/17", PT STATES WANTING HER METHADONE. PT REMAINED OFF BIPAP FOR 15 MINS WITHOUT A DROP IN SATS. PT SUCTIONED OCCASIONALY WHEN COUGHING, PT HAS A WEAK COUGH. MINIMAL SPUTUM OBTAINED FROM SUCTIONING. PT PLACED BACK ON BIPAP PER REQUEST.
--- NOTE | 2017-07-26 19:30 | NUR ---
PT SHIFT REPORT RECEIVED FROM DAY SHIFT RN. PT BACK FROM CT. PT REMAINS ON BIPAP. WILL CONTINUE TO CLOSELY MONITOR.
--- NOTE | 2017-07-26 20:00 | NUR ---
RT ADJUSTED BIPAP AND CHANGED TO CPAP OF SUPPORT OF 10. WILL CONTINUE TO CLOSELY MONITOR AT THIS TIME.
--- NOTE | 2017-07-26 21:00 | NUR ---
PT BLOOD PRESSURE 180-200 SYSTOLIC PER MD APPLY ADDITIONAL CLONIDINE PATCH OF THE SAME DOSE FOR A TOTAL OF 2 PATCHES 0.2MG/24HRS. WILL CONTINUE TO CLOSELY MONITOR.
--- NOTE | 2017-07-26 21:15 | NUR ---
PT GETTING AGITATED WITH CURRENT CPAP SETTING. PER MD GIVE ATIVAN AT THIS TIME AND CONTINUE TO MONITOR.
--- NOTE | 2017-07-26 22:15 | NUR ---
CALLED MD TO UPDATE WITH CT RESULTS. PER MD PLACE PT BACK ON BIPAP SETTING 15/10 RATE 12 WITH [employer] GOAL OF TIDAL VOLUME 295. WILL CALL RT TO COME ADJUST SETTINGS. WILL CONTINUE TO CLOSELY MONITOR.
--- NOTE | 2017-07-26 23:24 | NUR ---
PT RESTING WELL AT THIS TIME. REPOSITIONED PT FOR COMFORT. PT IS TOELRATING CURRENT BIPAP SETTINGS. WILL CONTINUE TO CLOSELY MONITOR.
--- NOTE | 2017-07-27 00:46 | NUR ---
PT REPOSITIONED WITH PILLOW SUPPORT. PT TOELRATED WELL. PT WOKE WITH TURNING, DENIES ANY NEEDS AT THIS TIME. WILL CONINUE TO CLOSELY MONITOR. PT REMAINS ON BIPAP WITH SETING 15/10, RATE 12, AND FIO2 30%. PT SPO2 97% WITH RR 24. WILL CONTINUE TO CLOSELY MONITO PATIENT AT THIS TIME.
--- NOTE | 2017-07-27 02:30 | NUR ---
PT REPOSTIONED WITH PILLOW SUPPORT. PT TOELRATED WELL. PT DENIES ANY NEEDS AT THIS TIME. WILL CONTINUE TO CLOSELY MONITOR.
--- NOTE | 2017-07-27 03:45 | NUR ---
PT MOANING OUT. ENTERED ROOM TO CHECK ON PATIENT. PT STATES "MY BACK IS HURTTING". REPOSITIONED PT TO OTHER SIDE WITH PILLOW SUPPORT PER REQUEST. PT STATES "THAT IS BETTER". PT RR HAS BEEN SLOWLY INCREASING THE LAST HOUR WITH RATE CURRENTLY 28-30. ENCOURAGED PT TO TAKE SLOW DEEP BREATHS PT STATES "I CANT". RESPIRATORY THERAPIST AT BEDSIDE.
--- NOTE | 2017-07-27 04:06 | NUR ---
RT ADJUSTED BIPAP SETTING TO 18/10 D/T P VT IN THE MID 200'S. GOAL VT IS 295-300. WITH ADJUSTING SETTINGS PT VT NOW 300-330. WILL CONTINUE TO CLOSELY MONITOR PT. SPO2 96%.
--- NOTE | 2017-07-27 05:10 | NUR ---
CALLED MD GONZALEZ TO UPDATE REGAURDING PTS RESSPIRATORY CHANGES. UPDATED THAT PAST HOUR PT RR IS 30-34 AND BIPAP CHANGES OF 18/10 FROM PREVIOUS 22/01. PT WORK OF BREATHING HAS REMAINED THE SAME FROM THE START OF SHIFT. BREATH SOUNDS ARE COARSE AND DIMINISHED. UPDATED ON URINE OUTPUT AND MENTAL STATUS. NEW ORDERS FOR LABS AND ABG. WILL CONTINUE TO CLOSELY MONITOR AND UPDATE MD WITH RESULTS.
--- NOTE | 2017-07-27 05:50 | NUR ---
CALLED MD GONZALEZ TO NOTIFY OF ABG RESULTS. PER MD LEAVE BIPAP SETINGS AT CURRENT SETTINGS AND HE WILL BE DOWN TO ASSESS THE PATIENT.
--- NOTE | 2017-07-27 06:09 | NUR ---
MD GONZALEZ CALLED AND GAVE ORDERS TO INCREASE FIO2 TO 50%. RT IN TO ADJUST SETTINGS. WILL CONTINUE TO CLOSELY MONITOR.
--- NOTE | 2017-07-27 08:13 | NUR ---
NURSE CHRISTINA AND ASSOCIATE FINANCIAL ANALYST ABBEY WILL BE PROVIDING ALL CARE FOR TODAY WILL ASSIST WITH CARE WHEN NEEDED AND CONTINUE TO CHECK ON PT. PT IS CURENTLY RESTING SAFELY IN BED WITH CALL LIGHT IN REACH. NURSE CHRISTINA IN ROOM DOING HER MORNING ASSESMENT.
--- NOTE | 2017-07-27 08:21 | NUR ---
IV SITES INTACT, NO REDNESS OR SWELLING NOTED, FLUIDS/FLUSHES INFUSE EAILY. PT SLEEPING AT THIS TIME, ROUSES SLIGHTLY TO VOCAL AND PHYSICAL STIMULI. CALLED DAY SURGERY FOR PICC LINE CONSULT PER . PT MARGARETTE BIPAP AT THIS TIME.
--- NOTE | 2017-07-27 08:59 | CONS ---
[facility] [address] [place], [place] [address] Signed DATE OF CONSULTATION: 07/26/2017 CONSULTING PHYSICIAN: Mane Valenzuela MD REQUESTING PHYSICIAN: Dr. Neville. PROBLEM: Bilateral lower lung consolidation related to stuporous condition of heroin addiction. HISTORY: This 62-year-old woman has had essentially lifelong heroin addiction since age 16. She is known to me from the past having undergone placement of central venous catheter for poor peripheral access, as well as incision and drainage of complex right upper extremity abscess in 2016. She has had multiple hospitalizations for exacerbation of respiratory failure secondary to heroin overdose in the past. She was recently under observation between the and 23 July 2017 related to overdose. The patient presented to the emergency room on 07/25/2017, with recurrent episode of respiratory failure, noted to be hypercapnic and hypoxic. BiPAP therapy was instituted and improvement of CO2 with ventilation was undertaken, and successful. It was unclear if the patient has had aspiration, or other particular issue. There was no clear evidence of pneumonia. The patient was admitted for further management to the intensive care unit. My review with the nursing staff shows she has been variably responsive, and alert from time to time, and when awake demands her hydralazine, and methadone. She has not been given Narcan to my knowledge. She has had prior history of significant respiratory failure secondary to aspiration pneumonia causing of prolonged hospitalization in 2017, including need for tracheostomy, and a long-term respiratory care facility. She has since recovered from that problem and tracheostomy had been removed. She is known to have hepatitis C, as well as her longstanding heroin addiction as noted. She has additionally hypertension, history of peptic disease, and COPD. SOCIAL HISTORY: She has no family members at hand currently or otherwise to my knowledge. PHYSICAL EXAMINATION: GENERAL: The patient is essentially obtunded and is on a BiPAP face mask device. She is not easily roused, but is now sleeping according to nurses. VITAL SIGNS: Examination of her pupils shows them to be mid-range, not pinpoint by any Electronically Signed By: MANE VALENZUELA MD 07/27/17 0859 PATIENT NAME: DESHAWN MILLER CONSULTATION DATE OF : 53 REPORT #: [id number] PHYSICIAN: MANE VALENZUELA MD PCP: SEAN TINAJERO REPORT IS CONFIDENTIAL AND NOT TO BE RELEASED WITHOUT AUTHORIZATION [facility] [address] [place], [place] [address] Signed stretch. Trachea is midline. She does have what appears to be some facial edema. CHEST: Shows normal respiratory excursion actually. I did not detect an audible wheeze. LABORATORY DATA: Arterial blood gas at eight this morning showed a pH of 7.36, CO2 of 66, O2 of 99. To my knowledge, there has not been an ABG since that time. Her admission ABG showed a pH of 7.27 with a CO2 of 77, oxygenation of 82. ASSESSMENT: I have reviewed her CT scan, which shows what appears to be consolidation in the dependent portions of right and left lobes. The plain x-rays done yesterday and today show bibasilar retrocardiac opacities similar to previous imaging studies. ASSESSMENT AND PLAN: I was consulted by Dr. Neville for consideration of bronchoscopy in hopes of providing improved aeration to the dependent lower segments of the lung. BiPAP respiratory support has been helpful to her, and she has improved though she remains somewhat stuporous, and this is considered related to her heroin use. I am told that Narcan has been avoided so as to not induce a withdrawal syndrome acutely. Consideration for bronchoscopy to improve aeration of lower lung segments has been proposed by Dr. Neville. This would require intubation for my level of skill in this situation however. Notably, the patient was ventilated for quite some time requiring tracheostomy in the last month or so of 2017, (four months ago essentially). Her relentless and persistent use of heroin has caused progressive debility for her including now recurrent pulmonary problems, including previous episode of aspiration underlying COPD exacerbated by hypoventilation and so on. There was certainly risk to bronchoscopic evaluation and bronchoalveolar lavage, or mobilization of mucous plugs. We will revisit this concept tomorrow. Review of her medications show she is currently on Piperacillin, lorazepam, clonidine, Motrin, hydroxyzine, and not on opiate otherwise. She had been on enoxaparin (Lovenox subcutaneously), and remains so as DVT prophylaxis. I will review this further with Dr. Neville tomorrow for further consideration of bronchoscopy as appropriate. Mane Valenzuela MD /BRENTL /[id number] Electronically Signed By: MANE VALENZUELA MD 07/27/17 0859 PATIENT NAME: DESHAWN MILLER CONSULTATION DATE OF : 53 REPORT #: [id number] PHYSICIAN: MANE VALENZUELA MD PCP: SEAN TINAJERO REPORT IS CONFIDENTIAL AND NOT TO BE RELEASED WITHOUT AUTHORIZATION [facility] [address] [place] [address] Signed cc: Dr. Neivlle. Copies: ~ Electronically Signed By: MANE VALENZUELA MD 07/27/17 0859 PATIENT NAME: DESHAWN MILLER CONSULTATION DATE OF : 53 REPORT #: [id number] PHYSICIAN: MANE VALENZUELA MD PCP: SEAN TINAJERO REPORT IS CONFIDENTIAL AND NOT TO BE RELEASED WITHOUT AUTHORIZATION
--- NOTE | 2017-07-27 09:52 | NUR ---
CRISTINE RN IN ROOM ASSESSING FOR PICC LINE PLACEMENT. STUDENT NURSE ABBEY IS OBSERVING.
--- NOTE | 2017-07-27 10:49 | NUR ---
IN RM WITH PT WHILE CRISTINE FLEMING ATTEMPTS PLACEMENT OF PICC LINE. PT CALM AND SHOWED SIGNS OF SLIGHT MOVEMENT DURING PROCEDURE. PT TOLERATED PROCEDURE WELL, VITAL SIGNS WNL. UNABLE TO PLACE PICC LINE AFTER MULTIPLE ATTEMPTS. PT RESTING IN BED. NO SIGNS OF DISCOMFORT, WILL CONTINUE TO MONITOR CLOSELY.
[2017-07-27] MEDS ORDERED: ALBUTEROL2.5 MG/3 M INH (11:00)
[2017-07-27] MEDS ORDERED: NICORETTE2 M1 BUCCAL (11:03)
[2017-07-27] MEDS ORDERED: IPRAT-ALBUT 0.5-3 ML INH (11:07)
[2017-07-27] MEDS ORDERED: B-121000 MC2 PO (11:13)
[2017-07-27] MEDS ORDERED: VITAMIN D31000 UNIT PO (11:13)
[2017-07-27] MEDS ORDERED: LEVOTHYROXINE50 MCG PO (11:13)
[2017-07-27] MEDS ORDERED: MELATONIN3 M2 PO (11:13)
[2017-07-27] MEDS ORDERED: OMEPRAZOLE20 MG PO (11:13)
[2017-07-27] MEDS ORDERED: MIRALAX17 GM PO (11:14)
--- NOTE | 2017-07-27 11:22 | NUR ---
MED REC COMPLETE
--- NOTE | 2017-07-27 12:08 | NUR ---
PICC ATTEMPT INSERTION NOTE: ASKED BY DR. GONZALEZ TO EVALUATE PATIENT FOR POTENTIAL PICC LINE PLACEMENT. PATIENT HAS VERY POOR IV ACCESS DUE TO HER CONTINUED USE OF IV HEROIN. PATIENT ALREADY HAS AN ULTRA SOUND GUIDED IV IN HER RIGHT UPPER ARM. THEREFORE, HER LEFT ARM WAS EVALUATED FIRST. PATIENT UNABLE TO SIGN CONSENT FOR PICC LINE INSERTION DUE TO HER DECREASED LOC AT THIS TIME AND CONSENT OBTAINED FROM DR. GONZALEZ ON BEHALF OF THE PATIENT. AFTER REVIEWING LAB VALUES AND DISCUSSING WITH PT'S PRIMARY NURSE, NO ABSOLUTE CONTRAINDICATIONS WERE IDENTIFIED. IT WAS NOTED RIGHT AWAY THAT PATIENT HAD A SCAR ON HER LEFT UPPER ARM IN THE REGION WHERE A PREVIOUS PICC LIKELY WAS. USING U/S, PT'S BASILIC AND BRACHIAL VEINS WERE IDENTIFIED. THE BRACHIAL VEIN WAS THE LARGER OF THE TWO AND ESTIMATED TO BE GREATER THAN 8 FR. THE BRACHIAL VEIN WAS EASILY ACCESSED, HOWEVER THE GUIDEWIRE WAS UNABLE TO BE ADVANCED PROPERLY INTO THE VEIN, IT WOULD ONLY ADVANCE APPROXIMATELY 5-6 IN. THE BRACHIAL VEIN WAS ATTEMPTED AT A HIGHER LOCATION ON THE ARM WAS AGAIN ACCESSED WITHOUT DIFFICULTY WITH A IV, BUT AGAIN THE GUIDEWIRE WOULD NOT ADVANCE INTO THE VEIN. THERE WAS DARK, NON-PULSATILE BLOOD RETURN FROM BOTH IV SITES. AT THIS POINT, THE BASILIC VEIN WAS ATTEMPTED. IV ACCESS WAS ATTEMPTED BUT NOT SUCCESSFUL. IV ACCESS REMAINS IN FIRST ATTEMPT ON BRACHIAL VEIN, 20 G, 1 3/4 IN CATHETER.
--- NOTE | 2017-07-27 12:49 | NUR ---
CALLED TO ICU BY DR GONZALEZ. HE WOULD LIKE FAMILY NOTIFIED THAT PATIENT HAS ASPIRATED AND WILL BE INTUBATED AND TRANSFERRED TO [facility] IN [place]. CALLED SON, MANE AT [phone]. HE STATES UNDERSTANDING OF PATIENTS TURN AND TRANSFER. HE STATES SHE HAS BEEN THERE BEFORE AND HE WILL TRY TO FIND A RIDE TO [place]. HE HAS NO QUESTIONS.
--- NOTE | 2017-07-27 12:50 | NUR ---
SIZE 7 TUBE PLACED BY LV DEL RIO, 21 CM AT THE TEETH. IMAGING CALLED FOR CHEST X-RAY STAT.
--- NOTE | 2017-07-27 12:53 | NUR ---
PATIENT INTUBATED AT 1250 BY LV GILLIAM. CHEST XRAY BEING OBTAINED AT THIS TIME.
--- NOTE | 2017-07-27 13:00 | NUR ---
1 L BOLUS OF NS ORDERED AT THE BEDSIDE DUE TO PT HYPOTENSION PER ORDER.
--- NOTE | 2017-07-27 13:25 | NUR ---
CHEST X-RAY CONFIRMED TUBE PLACEMENT, PT NOW ON VENT. BILAT HANDS RESTRAINED AT THIS TIME. PT APPEARS TO BE MARGARETTE WELL.
--- NOTE | 2017-07-27 13:40 | NUR ---
[employer]W ARIVED, FULL REPORT GIVEN TO TEAM. COPIES OF PT RECORDS GIVEN TO FLIGHT CREW.
--- NOTE | 2017-07-27 14:05 | NUR ---
OG TUBE INSERTED AT THIS TIME. PLACEMENT CONFIRMED VIA ASCULTATION OF ABD AND BUBBLING HEARD DURING AIR INSTALLATION.
--- NOTE | 2017-07-27 14:10 | NUR ---
PT LEFT THE BUILDING WITH LIFE FLIGHT CREW. ALL PERSONAL BELONGINGS WENT WITH PT. FLIGHT CREW HAS PT STABALIZED ON THEIR EQUIPMENT, VENT, AND IV PUMPS. ALL QUESTIONS ANSWERED. PT BP IS HOLDING STABLE.
== END 2017-07-27 15:51 | disposition short-term general hospital (02) | DRG 917 ==
LOC: ED 08:12 → CCU 08:14
PROVIDERS: ADMIT Internal Medicine
PROC: 5A09357 Assistance with Respiratory Ventilation, Less than 24 Consecutive Hours, Continuous Positive Airway Pressure (ICD-10-PCS; 2017-07-26)
PROC: 0BH17EZ Insertion of Endotracheal Airway into Trachea, Via Natural or Artificial Opening (ICD-10-PCS; principal; 2017-07-27)
PROC: 5A1935Z Respiratory Ventilation, Less than 24 Consecutive Hours (ICD-10-PCS; 2017-07-27)
DX: T40.1X1A Poisoning by heroin, accidental (unintentional), initial encounter (principal); J96.21 Acute and chronic respiratory failure with hypoxia; J96.22 Acute and chronic respiratory failure with hypercapnia; F11.23 Opioid dependence with withdrawal; J98.19 Other pulmonary collapse; F17.200 Nicotine dependence, unspecified, uncomplicated; J44.9 Chronic obstructive pulmonary disease, unspecified; B19.20 Unspecified viral hepatitis C without hepatic coma; I10 Essential (primary) hypertension; E03.9 Hypothyroidism, unspecified; T17.908A Unspecified foreign body in respiratory tract, part unspecified causing other injury, initial encounter; Z99.81 Dependence on supplemental oxygen; Z87.11 Personal history of peptic ulcer disease; Z79.52 Long term (current) use of systemic steroids; Z79.899 Other long term (current) drug therapy
CPT/HCPCS: 31500; 31720; 36415; 36600; 51702; 70492; 71045; 71260; 80053; 82803; 83605; 83735; 84484; 85025; 85379; 94002; 94640; 94660; 96361; 96365; 96372; 96375; 96376; 99285; G0378; J1650; J2060; J2370; J2543; J2704; J3475; J3480; J7030; J7040; J7120; Q0177; Q9967